=== PATIENT | female | born 1995 | race Caucasian/White ===

== ENCOUNTER 2024-04-08 17:51 | Emergency (ER) | payer BC, SELFPAY ==
[2024-04-08 17:52] VITALS: BP 112/79; PULSE 106; RESP 16; TEMP 36.4; O2SAT 98; BMI 17.6
[2024-04-08 17:54] VITALS: BP 125/75; PULSE 83; RESP 16; TEMP 36.4; O2SAT 97
--- NOTE | 2024-04-08 18:09 | ED.RN ---
PT WAS SEEN TODAY AND TREATED FOR RIGHT KIDNEY STONE AT ANOTHER FACILITY. PT HAS TAMSULOSIN RX FILLED BUT STILL WAITING FOR [facility] TO FILL THE TORADOL AND ZOFRAN RX. PT RETURNED HERE BECAUSE SHE HAS INCREASED NAUSEA AND PAIN.
--- NOTE | 2024-04-08 18:41 | EX.ED.DYSGE1 ---
HPI <TOD Castrejon - Last Filed: 04/08/24 21:37> History of Present Illness Chief Complaint: Flank Pain Narrative Narrative: 29-year-old female with no significant ankle history presents to the emergency department for right-sided flank pain. Patient states this started severely today however she has been having intermittent back pain on and off for 1 week. Patient states that she went to an urgent care, they told her it might of been kidney stones and they sent her prescriptions to the pharmacy. While the patient was waiting for the pharmacy, she states the pain is continuing to get worse and she is here for further evaluation. Patient does have history of nausea and vomiting. PFSH <TOD Castrejon - Last Filed: 04/08/24 21:37> [facility] Home Medications ?Medication ?Instructions ?Recorded ?Last Taken ?Type cefdinir 300 mg capsule 300 mg PO BID 7 days #14 caps 04/08/24 Unknown Rx hydrocodone-acetaminophen 5-325mg 1 tab PO Q6H PRN PRN Pain 3 days 04/08/24 Unknown Rx 5mg-325mg #10 TABLETS ondansetron 4 mg disintegrating 4 mg PO Q8H PRN PRN Nausea #10 tabs 04/08/24 Unknown Rx tablet tamsulosin 0.4 mg capsule (Flomax) 0.4 mg PO DAILY #7 caps 04/08/24 Unknown Rx Allergy/AdvReac Type Severity Reaction Status Date / Time No Known Allergies Allergy Verified 04/08/24 18:11 Social History Smoking Status: Never smoker ROS <TOD Castrejon - Last Filed: 04/08/24 21:37> ROS ED ROS Narrative Constitutional: Negative for fever, chills, weight loss, weakness Eyes: Negative for vision loss, vision change, double vision ENT: Negative for any sore throat, ear pain, congestion Cardiovascular: Negative for any chest pain, tightness, palpitations Respiratory: Negative for any cough, sputum production, hemoptysis, dyspnea, dyspnea on exertion, orthopnea Gastrointestinal: Negative for any abdominal pain, diarrhea, constipation, blood in stool, blood in vomit. Positive for nausea and vomiting : Negative for any urinary frequency, dysuria, retention, blood in urine Muscle skeletal: Negative for any neck pain. Positive for right sided back pain Neurological: Negative for any headache, syncope, dizziness Skin: Negative for any rashes, itching, abrasions, lacerations Psychiatric: Negative for any depression, anxiety, stress, suicidal ideation, homicidal ideation Hematologic: Negative for any excessive bruising, easy bleeding EXAM <TOD Castrejon - Last Filed: 04/08/24 21:37> Physical Exam Narrative Exam Narrative: Vital signs reviewed. HEET: Head normocephalic atraumatic, TMs clear bilaterally. Posterior pharynx is clear, dry mucous membranes. Nares clear bilaterally. Neck: Supple with no lymphadenopathy or tenderness. No signs of meningismus. Cardiac: Regular rate and rhythm no murmurs gallops or rubs, equal peripheral pulses bilaterally. Respiratory: Lungs clear to auscultation bilaterally. No chest tenderness. Abdomen: Soft, nontender, nondistended. No abdominal bruit or pulsatile masses. No hepatosplenomegaly Extremities: No peripheral edema, no signs of gross trauma or deformity. Active full range of motion of all extremities. Neuro: Cranial nerves II through XII intact, no focal neurological deficits. Skin: Clean dry and intact with no rash, purpura, petechiae, vesicles or pustules. Backs/flank: positive right-sided CVA tenderness no midline spinal tenderness, no deformity. Psych: Normal mood and affect. No SI, HI or acute psychosis. Const Vital Signs: 04/08/24 17:52 04/08/24 17:54 04/08/24 18:54 Temperature 97.6 F L 97.6 F L 97.6 F L Temperature Source Oral Oral Oral Pulse Rate 106 H 83 116 H Respiratory Rate 16 16 18 Blood Pressure 112/79 125/75 H 152/84 H Blood Pressure Mean 90 91 106 Pulse Ox 98 97 100 Oxygen Delivery Method Room Air Room Air Room Air 04/08/24 19:00 04/08/24 21:00 04/08/24 21:55 Temperature 97.6 F L 97.6 F L Temperature Source Oral Pulse Rate 116 H 71 79 Respiratory Rate 18 16 16 Blood Pressure 152/84 H 127/77 H 124/80 H Blood Pressure Mean 106 93 94 Pulse Ox 100 99 100 Oxygen Delivery Method Room Air Room Air Positive well nourished and well developed General Appearance ED: well developed <Dr. Brady Tripathi DO - Last Filed: 04/09/24 00:35> Physical Exam Const Vital Signs: 04/08/24 17:52 04/08/24 17:54 04/08/24 18:54 Temperature 97.6 F L 97.6 F L 97.6 F L Temperature Source Oral Oral Oral Pulse Rate 106 H 83 116 H Respiratory Rate 16 16 18 Blood Pressure 112/79 125/75 H 152/84 H Blood Pressure Mean 90 91 106 Pulse Ox 98 97 100 Oxygen Delivery Method Room Air Room Air Room Air 04/08/24 19:00 04/08/24 21:00 04/08/24 21:55 Temperature 97.6 F L 97.6 F L Temperature Source Oral Pulse Rate 116 H 71 79 Respiratory Rate 18 16 16 Blood Pressure 152/84 H 127/77 H 124/80 H Blood Pressure Mean 106 93 94 Pulse Ox 100 99 100 Oxygen Delivery Method Room Air Room Air [facility] <TOD Castrejon - Last Filed: 04/08/24 21:37> [facility] Lab Data Labs: Laboratory Results - last 24 hr 04/08/24 04/08/24 18:40 19:55 WBC 16.2 H RBC 4.77 Hgb 12.6 Hct 38.3 MCV 80.3 L MCH 26.4 L MCHC 32.9 RDW Std Deviation 34.7 L RDW Coeff of Guilherme 11.9 Plt Count 204 MPV 11.2 Immature Gran % (Auto) 0.600 Neut % (Auto) 93.2 H Lymph % (Auto) 4.1 L Reeves % (Auto) 2.0 Eos % (Auto) 0.0 Baso % (Auto) 0.1 Absolute Neuts (auto) 15.1 H Absolute Lymphs (auto) 0.66 L Nucleated RBC % 0 Sodium 134 L Potassium 4.2 Chloride 104 Carbon Dioxide 26.0 Anion Gap 5 BUN 12 Creatinine 0.91 Estim Creat Clear Calc 62.31 Est GFR (MDRD) Af Amer 96 Est GFR (MDRD) Non-Af 79 BUN/Creatinine Ratio 13.2 Glucose 111 H Calcium 9.1 Total Bilirubin 0.40 AST 15 ALT 17 Alkaline Phosphatase 40 L Total Protein 7.3 Albumin 3.3 Globulin 4.0 Albumin/Globulin Ratio 0.8 L Lipase 21 Serum , Qual NEGATIVE Urine Color Yellow Urine Clarity Cloudy Urine pH 7.0 Ur Specific [place] 1.005 Urine Protein Negative Urine Glucose (UA) Normal Urine Ketones 50 H Urine Occult Blood 25 H Urine Nitrite Negative Urine Bilirubin Negative Urine Urobilinogen Normal Ur Leukocyte Esterase 500 H Urine RBC 0-5 SEEN Urine WBC 50-100 SEEN Ur Squamous Epith Cells 0-5 SEEN Urine Bacteria 1+ Urine Mucus 0 SEEN Radiography Diagnostic Testing: Clinical Impression(s) from Imaging Studies Abdomen/Pelvis CT 04/08/24 19:29 IMPRESSION: Mild hydronephrosis of the right kidney. 2 mm stone just proximal to the right UVJ. Electronically Signed: Cm Rivera DO at 21:16 EST Reading Location ID and State: [facility] / [place] Tel [phone], Service support , Treatment and Re-Evaluation :: Differential diagnosis includes however is not limited to: Pyelonephritis, UTI, , obstructing uropathy, lumbar strain Patient appears generally well, vital signs are stable, patient is nontoxic-appearing. Presenting to the emerged part with complaints of right-sided flank pain that is been ongoing over the last week, much worse today. Patient will receive a full kidney stone workup including a CT scan of the abdomen pelvis, IV fluid Zofran Toradol. Urinalysis, basic labs will be obtained. All radiologic examinations were read, reviewed by the emergency department attending. From these reads, a plan of care will be put in place. On reevaluation, the patient was feeling much improved. Blood pressure 127/77 heart rate 71, patient is afebrile. Laboratory values did show leukocytosis with a white blood count 16.2, chemistries showed normal kidney function, negative serum . Patient's urinalysis was positive for infection with 1+ bacteria 50-100 white blood cells, 500 leukocytes. This was sent for culture, IV Rocephin given. Patient CT scan of the abdomen pelvis shows mild hydronephrosis of the right kidney. 2 mm stone just proximal to the right UVJ. On reevaluation, the patient was in a position of comfort. I do believe the patient is stable for discharge. Patient placed on cefdinir twice a day for 7 days. Patient will follow-up with urology, was given strict return precaution to return for any worsening back pain fever chills nausea or vomiting. Patient also be given Zofran, Percocet as well as Flomax. Patient is happy with the plan of care, stable for discharge. <Dr. Brady Tripathi DO - Last Filed: 04/09/24 00:35> [facility] Lab Data Labs: Laboratory Results - last 24 hr 04/08/24 04/08/24 18:40 19:55 WBC 16.2 H RBC 4.77 Hgb 12.6 Hct 38.3 MCV 80.3 L MCH 26.4 L MCHC 32.9 RDW Std Deviation 34.7 L RDW Coeff of Guilherme 11.9 Plt Count 204 MPV 11.2 Immature Gran % (Auto) 0.600 Neut % (Auto) 93.2 H Lymph % (Auto) 4.1 L Reeves % (Auto) 2.0 Eos % (Auto) 0.0 Baso % (Auto) 0.1 Absolute Neuts (auto) 15.1 H Absolute Lymphs (auto) 0.66 L Nucleated RBC % 0 Sodium 134 L Potassium 4.2 Chloride 104 Carbon Dioxide 26.0 Anion Gap 5 BUN 12 Creatinine 0.91 Estim Creat Clear Calc 62.31 Est GFR (MDRD) Af Amer 96 Est GFR (MDRD) Non-Af 79 BUN/Creatinine Ratio 13.2 Glucose 111 H Calcium 9.1 Total Bilirubin 0.40 AST 15 ALT 17 Alkaline Phosphatase 40 L Total Protein 7.3 Albumin 3.3 Globulin 4.0 Albumin/Globulin Ratio 0.8 L Lipase 21 Serum , Qual NEGATIVE Urine Color Yellow Urine Clarity Cloudy Urine pH 7.0 Ur Specific [place] 1.005 Urine Protein Negative Urine Glucose (UA) Normal Urine Ketones 50 H Urine Occult Blood 25 H Urine Nitrite Negative Urine Bilirubin Negative Urine Urobilinogen Normal Ur Leukocyte Esterase 500 H Urine RBC 0-5 SEEN Urine WBC 50-100 SEEN Ur Squamous Epith Cells 0-5 SEEN Urine Bacteria 1+ Urine Mucus 0 SEEN Radiography Diagnostic Testing: Clinical Impression(s) from Imaging Studies Abdomen/Pelvis CT 04/08/24 19:29 IMPRESSION: Mild hydronephrosis of the right kidney. 2 mm stone just proximal to the right UVJ. Electronically Signed: Cm Rivera DO at 21:16 EST , Treatment and Re-Evaluation :: Differential diagnosis includes however is not limited to: Pyelonephritis, UTI, , obstructing uropathy, lumbar strain Patient appears generally well, vital signs are stable, patient is nontoxic-appearing. Presenting to the emerged part with complaints of right-sided flank pain that is been ongoing over the last week, much worse today. Patient will receive a full kidney stone workup including a CT scan of the abdomen pelvis, IV fluid Zofran Toradol. Urinalysis, basic labs will be obtained. All radiologic examinations were read, reviewed by the emergency department attending. From these reads, a plan of care will be put in place. On reevaluation, the patient was feeling much improved. Blood pressure 127/77 heart rate 71, patient is afebrile. Laboratory values did show leukocytosis with a white blood count 16.2, chemistries showed normal kidney function, negative serum . Patient's urinalysis was positive for infection with 1+ bacteria 50-100 white blood cells, 500 leukocytes. This was sent for culture, IV Rocephin given. Patient CT scan of the abdomen pelvis shows mild hydronephrosis of the right kidney. 2 mm stone just proximal to the right UVJ. On reevaluation, the patient was in a position of comfort. I do believe the patient is stable for discharge. Patient placed on cefdinir twice a day for 7 days. Patient will follow-up with urology, was given strict return precaution to return for any worsening back pain fever chills nausea or vomiting. Patient also be given Zofran, Percocet as well as Flomax. Patient is happy with the plan of care, stable for discharge. ED attending note: I evaluated the patient in conjunction with the TIM. I agree with his/her statements and above findings. I have personally performed a face to face assessment of the patient and have reviewed the TIM Note. I performed a substantive portion of the visit including all aspects of the following. I personally saw the patient performed chart review, physical exam, reviewed labs, imaging (if obtained), and formulated a treatment and management plan. This note was generated with [employer] software. It may contain incorrect words, spelling, and punctuation that were not noted in review of the chart prior to signing. Discharge Plan Triage Chief Complaint: Flank Pain ED Midlevel Provider: Ghulam Ladd ED Provider: Brady Tripathi Dx/Rx/DC Orders Clinical Impression: Kidney stone, UTI (urinary tract infection) Instructions: Urinary Tract Infections in Women, ED Kidney Stone with Pain Prescriptions: New hydrocodone-acetaminophen 5-325 mg tablet 1 tab PO Q6H PRN PRN (Reason: Pain) 3 Days Qty: 10 0RF tamsulosin [Flomax] 0.4 mg capsule 0.4 mg PO DAILY Qty: 7 0RF ondansetron 4 mg tablet,disintegrating 4 mg PO Q8H PRN PRN (Reason: Nausea) Qty: 10 0RF cefdinir 300 mg capsule 300 mg PO BID 7 Days Qty: 14 0RF Primary Care Provider: Adilia Covarrubias Referrals: Ernestina Torres MD [Med Staff - Active Staff] - Adilia Covarrubias DO [Primary Care Provider] - Activity Restrictions/Additional Instructions: Please follow-up outpatient. You have a 2 mm stone on the right side. The pain medicine for severe pain is [place]. You may use ibuprofen for the less severe pain. Nausea medication is Zofran, Flomax is to help you pass the stone. Cefdinir you must take until finished. This is your antibiotic. Print Language: [place] Disposition Disposition: Home, Self Care Discharge Date/Time: 04/08/24 22:30
[2024-04-08] MEDS: Ondansetron 4 MG/2 ML Vial IV ×2 (18:43→22:25)
[2024-04-08] MEDS: Ketorolac 15 MG/ML Vial IV (18:43)
[2024-04-08] MEDS: 0.9% Normal Saline (1000mL) 1,000 ML 999 ML IV (18:43)
[2024-04-08 18:46] LABS: Absolute Lymphocyte Count 0.66 X10^3/uL (0.83-4.51); Absolute Neutrophil Count 15.1 X10^3/uL (2.0-7.7); Basophil# 0.02 X10^3/uL; Basophil% 0.1 % (0-1); Hematocrit 38.3 % (37-47); Hemoglobin 12.6 g/dL (12.0-15.0); Lymphocyte # 0.66 X10^3/ul (0.83-4.51); Lymphocyte % 4.1 % (19-41); Mean Corp Hgb Conc 32.9 g/dL (32-36); Mean Corpuscular Hgb 26.4 pg (27.0-32.0); Mean Corpuscular Volume 80.3 fL (81-99); Mean Platelet Vol. 11.2 fl (6.2-12.0); Monocyte# 0.32 X10^3/uL; NRBC Flagged by Analyzer 0 % (0-5); Neutrophil % 93.2 % (47-70); Platelet Count 204 K/mm3 (150-450); RBC Distribution Width CV 11.9 % (11.6-14.6); RBC Distribution Width SD 34.7 fl (35.1-43.9); Red Blood Count 4.77 M/mm3 (4.2-5.4); White Blood Count 16.2 K/mm3 (4.4-11.0)
[2024-04-08 18:54] VITALS: BP 152/84; PULSE 116; RESP 18; TEMP 36.4; O2SAT 100
[2024-04-08 18:55] LABS: Internal QC Validated? YES +Cl - CLEAR BKGD; Pregnancy, Serum, hCG Quali. NEGATIVE Negative
[2024-04-08 19:00] VITALS: BP 152/84; PULSE 116; RESP 18; TEMP 36.4; O2SAT 100
[2024-04-08 19:03] LABS: ALB/GLOB Ratio 0.8 RATIO (0.9-2.4); AST(SGOT) 15 U/L (15-37); Alanine Aminotransfer ALT/SGPT 17 U/L (13-56); Albumin, Serum 3.3 g/dL (3.2-5.0); Alkaline Phosphatase 40 U/L (45-117); Anion Gap 5 (5-15); BUN 12 mg/dL (7-18); BUN/Creat Ratio 13.2 RATIO (10-20); Calcium,Total 9.1 mg/dL (8.5-10.1); Chloride 104 mmol/L (98-107); Creatinine, Serum 0.91 mg/dL (0.55-1.02); EST Glomerular Filtration Rate 79 mL/min (>60); Est Glom Filt Rate - Afr Amer 96 mL/min (>60); Estimated Creatinine Clearance 62.31 ml/min; Glucose 111 mg/dL (74-106); Lipase 21 U/L (13-75); Potassium 4.2 mmol/L (3.5-5.1); Protein, Total 7.3 g/dL (6.4-8.2); Sodium Level 134 mmol/L (136-145)
[2024-04-08] MEDS: Morphine 4 MG/ML Syringe IV (19:25)
--- NOTE | 2024-04-08 19:29 | CT_ITS ---
STUDY: CT ABDOMEN AND PELVIS WITHOUT CONTRAST REASON FOR EXAM: Female, 29 years old. Pain RADIATION DOSAGE (If Supplied By Facility): CTDIvol = ( 6.04 ) mGy, DLP = ( 297.48 ) mGycm TECHNIQUE: Transaxial images were obtained from the dome of the diaphragm to the symphysis pubis without oral contrast, and without intravenous contrast. Sagittal and coronal images were reconstructed. Individualized dose optimization techniques were used for this CT. COMPARISON: None. FINDINGS: The visualized lung bases are unremarkable. The visualized portions of the heart are within normal limits. Normal liver. Normal gallbladder and extrahepatic biliary system. Normal spleen. Normal pancreas. Normal bilateral adrenal glands. Mild hydronephrosis of the right kidney. 2 mm stone just proximal to the right UVJ. Normal left kidney. Normal visualized stomach. Normal small intestine. Normal colon. The appendix is visualized and appears normal. Normal abdominal aorta. Normal inferior vena cava. Normal retroperitoneum. Normal urinary bladder. Normal abdominal wall. Normal osseous structures. CT/Abdomen/Pelvis without Cont IMPRESSION: Mild hydronephrosis of the right kidney. 2 mm stone just proximal to the right UVJ. Electronically Signed: Cm Rivera DO at 21:16 [facility] Reading Location ID and State: [facility] / [place] Tel [phone], Service support ,
[2024-04-08 20:01] LABS: Mucous, Urine 0 SEEN /hpf (<or=2+)
[2024-04-08 20:02] LABS: Color, Urine Yellow (Yellow); Glucose, Dipstick Normal (Normal); Ketone-Dipstick 50 mg/dl (Negative); Leukocyte Esterase-Dipstick 500 /ul (Negative); Nitrite-Dipstick Negative (Negative); Occult Blood-Urine 25 /ul (Negative); Protein-Dipstick Negative (Negative); Specific Gravity, Urine 1.005 (1.002-1.030); Urine Bilirubin Dipstick Negative (Negative); Urine Clarity Cloudy (Clear); Urine Urobilinogen Normal (Normal)
[2024-04-08 20:31] LABS: Bacteria 1+ /hpf (None Seen)
[2024-04-08 20:32] LABS: Red Blood Cells-Urine 0-5 SEEN /hpf (0-5); Squamous Epithelial Cells - UA 0-5 SEEN /hpf (5-10); White Blood Cells 50-100 SEEN /hpf (0-5)
[2024-04-08 21:00] VITALS: BP 127/77; PULSE 71; RESP 16; O2SAT 99
[2024-04-08] MEDS: Ceftriaxone 1 GM/50 ML BAG IV (21:13)
[2024-04-08 21:55] VITALS: BP 124/80; PULSE 79; RESP 16; TEMP 36.4; O2SAT 100
[2024-04-08] MEDS: oxyCODONE 5 MG Tablet PO (22:25)
== END 2024-04-08 22:30 | disposition home or self-care (01) ==
PROVIDERS: Nurse Practitioner; Emergency Provider Emergency Medicine; PCP Internal Medicine; Visit Provider Emergency Medicine
DX: N20.0 Calculus of kidney (principal); N39.0 Urinary tract infection, site not specified
CPT/HCPCS: 74176; 80053; 81001; 83690; 84703; 85025; 87086; 96365; 96375; 96376; 99284; A4216; J2405